=== PATIENT | female | born 1945 | race Caucasian/White ===

== ENCOUNTER 2017-05-10 10:22 | Inpatient (IN) | payer MEDICARE, OTHER, MEDICAID ==
[2017-05-10] MEDS ORDERED: Dimethicone 20%/Zinc Oxide 25% 56 GM Spray Bottle TOP PRN (11:09)
--- NOTE | 2017-05-10 11:18 | EDM.PDOC ---
ED HPI GENERAL MEDICAL PROBLEM - General Chief Complaint: General Stated Complaint: WEAK Time Seen by Provider: 05/10/17 11:15 Source of Information: Reports: Patient, EMS History Limitations: Reports: No Limitations - History of Present Illness INITIAL COMMENTS - FREE TEXT/NARRATIVE: 72-year-old female with progressive worsening weakness over the past several months to the point where she is unable to take care of herself at home. For the last several days she's been sitting in a chair urinating on herself as well as intermittent loose stools. She has developed horrible groin rashes. She was brought in today by home health for placement in a long term. She also has increased shortness of breath with activity. Denies any chest pain, abdominal pain, nausea or vomiting. Onset: Unknown/Unsure Severity: Moderate Associated Symptoms: Reports: Cough, Shortness of Breath, Weakness. Denies: Chest Pain, Fever/Chills, Malaise, Nausea/Vomiting Right Knee Pain Score (Numeric/FACES): 2 - Related Data Allergies Allergy/AdvReac Type Severity Reaction Status Date / Time No Known Allergies Allergy Verified 12/13/15 10:11 Home Meds: Home Meds Aspirin [Adult Low Dose Aspirin EC] 81 mg PO DAILY 11/29/15 [History] Ergocalciferol (Vitamin D2) [Vitamin D] 400 units PO DAILY 11/29/15 [History] Levothyroxine 25 mcg PO DAILY 11/29/15 [History] Multivitamin [Multiple Vitamins] 1 tab PO DAILY 11/29/15 [History] Warfarin [Coumadin] 2.5 mg PO DAILY@1300 #30 tablet 12/18/15 [Rx] Furosemide [Furosemide] 05/10/17 [History] Furosemide [Furosemide] 40 mg PO DAILY 05/10/17 [History] Past Medical History Cardiovascular History: Reports: Hypertension Gastrointestinal History: Reports: Other (See Below) Other Gastrointestinal History: diarrhea past 3 days Genitourinary History: Reports: Urinary Incontinence Musculoskeletal History: Reports: Arthritis Endocrine/Metabolic History: Reports: Obesity/BMI 30+ Dermatologic History: Reports: Other (See Below) Other Dermatologic History: rash belle area rectalarea - Infectious Disease History Infectious Disease History: Reports: Chicken Pox, Measles - Past Surgical History Cardiovascular Surgical History: Reports: None Other Cardiovascular Surgeries/Procedures: shona stasis ulcer Endocrine Surgical History: Reports: None Musculoskeletal Surgical History: Reports: None Social & Family History - Family History Family Medical History: Noncontributory - Tobacco Use Smoking Status *Q: Never Smoker Second Hand Smoke Exposure: No - Caffeine Use Caffeine Use: Reports: None - Recreational Drug Use Recreational Drug Use: No ED ROS GENERAL - Review of Systems Review Of Systems: See Below Constitutional: Reports: Malaise, Weakness. Denies: Fever, Chills HEENT: Reports: No Symptoms Respiratory: Reports: Shortness of Breath, Cough Cardiovascular: Denies: Chest Pain Endocrine: Reports: Fatigue GI/Abdominal: Reports: Diarrhea : Reports: Incontinence Skin: Reports: Pallor Neurological: Denies: Dizziness, Headache Psychiatric: Reports: No Symptoms ED EXAM, GENERAL - Physical Exam Exam: See Below Exam Limited By: No Limitations General Appearance: Alert, No Apparent Distress Eye Exam: Bilateral Eye: EOMI, Other (Pale conjunctiva) Respiratory/Chest: No Respiratory Distress, Lungs Clear Cardiovascular: Regular Rate, Rhythm GI/Abdominal: Soft, Non-Tender Extremities: Pedal Edema, Redness Neurological: Alert, Oriented Skin Exam: Warm, Dry, Other (Patient has inflamed erythematous rashes on both lower extremities, also diffuse rash in the groin and buttock) Course - Vital Signs Last Recorded V/S: Last Vital Signs Temp 98.6 F 05/11/17 07:00 Pulse 84 05/11/17 07:00 Resp 18 05/11/17 07:00 BP 135/53 L 05/11/17 07:00 Pulse Ox 91 L 05/11/17 07:00 - Orders/Labs/Meds Orders: Medication Orders Acetaminophen (Tylenol) 650 mg PO Q4H PRN PRN Reason: Pain (Mild 1-3)/fever Aspirin (Halfprin) 81 mg PO DAILY [facility] Last Admin: 05/10/17 15:26 Dose: 81 mg Docusate Sodium (Colace) 100 mg PO BID PRN PRN Reason: Constipation Furosemide (Lasix) 40 mg PO DAILY [facility] Ceftriaxone Sodium 1 gm/ (Sodium Chloride) 50 mls @ 100 mls/hr IV Q24H [facility] Last Admin: 05/10/17 15:26 Dose: 100 mls/hr Sodium Chloride (Normal Saline) 1,000 mls @ 75 mls/hr IV ASDIRECTED [facility] Last Admin: 05/11/17 05:33 Dose: 75 mls/hr Infusion: 05/11/17 05:33 Dose: 75 mls/hr Admin: 05/10/17 18:02 Dose: 75 mls/hr Ferric Sodium Gluconate Complex 250 mg/ Sodium Chloride 120 mls @ 50 mls/hr IV ONETIME ONE Stop: 05/11/17 12:23 Levothyroxine Sodium (Levothyroxine) 25 mcg PO DAILY@0730 [facility] Magnesium Hydroxide (Milk Of Magnesia) 30 ml PO Q12H PRN PRN Reason: Constipation Nystatin (Nystop) 0 gm TOP QID [facility] Last Admin: 05/11/17 05:43 Dose: 1 applic Admin: 05/10/17 21:29 Dose: 1 applic Admin: 05/10/17 16:28 Dose: 1 applic Ondansetron HCl (Zofran) 4 mg IV Q4H PRN PRN Reason: Nausea/Vomiting Oxycodone HCl (Oxycodone) 5 mg PO Q4H PRN PRN Reason: Pain (moderate 4-6) Polyethylene Glycol (Miralax) 17 gm PO DAILY PRN PRN Reason: Constipation Sodium Chloride (Saline Flush) 10 ml FLUSH ASDIRECTED PRN PRN Reason: Keep Vein Open Warfarin Sodium (Coumadin) 2.5 mg PO DAILY@1300 [facility] Labs: Laboratory Tests 05/10/17 05/10/17 05/10/17 Range/Units 11:45 11:45 11:45 WBC 12.9 H (4.5-11.0) K/uL RBC 3.65 (3.30-5.50) M/uL Hgb 7.7 L (12.0-15.0) g/dL Hct 28.0 L (36.0-48.0) % MCV 77 L (80-98) fL MCH 21 L (27-31) pg MCHC 28 L (32-36) % Plt Count 347 (150-400) K/uL Neut % (Auto) 86 H (36-66) % Lymph % (Auto) 5 L (24-44) % [place] % (Auto) 8 H (2-6) % Eos % (Auto) 1 L (2-4) % Baso % (Auto) 0 (0-1) % PT 27.5 H (9.5-12.0) sec INR 2.47 H (0.80-1.20) Sodium 138 L (140-148) mmol/L Potassium 4.0 (3.6-5.2) mmol/L Chloride 100 (100-108) mmol/L Carbon Dioxide 32 (21-32) mmol/L Anion Gap 10.0 (5.0-14.0) mmol/L BUN 28 H (7-18) mg/dL Creatinine 1.7 H (0.6-1.0) mg/dL Est Cr Clr Drug Dosing 25.11 mL/min Estimated GFR (MDRD) 30 L (>60) Glucose 128 H (74-106) mg/dL Calcium 8.3 L (8.5-10.1) mg/dL Iron (50-170) ug/dL TIBC (250-450) ug/dl % Saturation (20-55) % Ferritin (8-388) ng/ml Total Bilirubin 0.7 D (0.2-1.0) mg/dL AST 16 (15-37) U/L ALT 18 (12-78) U/L Alkaline Phosphatase 69 (46-116) U/L Total Protein 6.1 L (6.4-8.2) g/dL Albumin 2.4 L (3.4-5.0) g/dL Globulin 3.7 H (2.3-3.5) g/dL Albumin/Globulin Ratio 0.7 L (1.2-2.2) Urine Color Urine Appearance Urine pH (4.5-8.0) Ur Specific [place] (1.008-1.030) Urine Protein (NEGATIVE) mg/dL Urine Glucose (UA) (NEGATIVE) mg/dL Urine Ketones (NEGATIVE) mg/dL Urine Occult Blood (NEGATIVE) Urine Nitrite (NEGATIVE) Urine Bilirubin (NEGATIVE) Urine Urobilinogen (NORMAL) mg/dL Ur Leukocyte Esterase (NEGATIVE) Urine RBC (0-5) Urine WBC (0-5) Ur Epithelial Cells Amorphous Sediment Urine Bacteria Urine Mucus 05/10/17 05/10/17 05/10/17 Range/Units 12:09 13:30 13:30 WBC (4.5-11.0) K/uL RBC (3.30-5.50) M/uL Hgb (12.0-15.0) g/dL Hct (36.0-48.0) % MCV (80-98) fL MCH (27-31) pg MCHC (32-36) % Plt Count (150-400) K/uL Neut % (Auto) (36-66) % Lymph % (Auto) (24-44) % [place] % (Auto) (2-6) % Eos % (Auto) (2-4) % Baso % (Auto) (0-1) % PT (9.5-12.0) sec INR (0.80-1.20) Sodium (140-148) mmol/L Potassium (3.6-5.2) mmol/L Chloride (100-108) mmol/L Carbon Dioxide (21-32) mmol/L Anion Gap (5.0-14.0) mmol/L BUN (7-18) mg/dL Creatinine (0.6-1.0) mg/dL Est Cr Clr Drug Dosing mL/min Estimated GFR (MDRD) (>60) Glucose (74-106) mg/dL Calcium (8.5-10.1) mg/dL Iron 13 L (50-170) ug/dL TIBC 307 (250-450) ug/dl % Saturation 4 L (20-55) % Ferritin 27 (8-388) ng/ml Total Bilirubin (0.2-1.0) mg/dL AST (15-37) U/L ALT (12-78) U/L Alkaline Phosphatase (46-116) U/L Total Protein (6.4-8.2) g/dL Albumin (3.4-5.0) g/dL Globulin (2.3-3.5) g/dL Albumin/Globulin Ratio (1.2-2.2) Urine Color Yellow Urine Appearance Cloudy Urine pH 5.0 (4.5-8.0) Ur Specific [place] 1.015 (1.008-1.030) Urine Protein Negative (NEGATIVE) mg/dL Urine Glucose (UA) Normal (NEGATIVE) mg/dL Urine Ketones Negative (NEGATIVE) mg/dL Urine Occult Blood Moderate (NEGATIVE) Urine Nitrite Negative (NEGATIVE) Urine Bilirubin Negative (NEGATIVE) Urine Urobilinogen Normal (NORMAL) mg/dL Ur Leukocyte Esterase Moderate (NEGATIVE) Urine RBC 5-10 H (0-5) Urine WBC 10-20 H (0-5) Ur Epithelial Cells Rare Amorphous Sediment Not seen Urine Bacteria Moderate Urine Mucus Not seen Meds: Medications Generic Name Dose Route Start Last Admin Trade Name Huma PRN Reason Stop Dose Admin Acetaminophen 650 mg 05/10/17 14:46 Tylenol PO Q4H PRN Pain (Mild 1-3)/fever Aspirin 81 mg 05/10/17 14:46 05/10/17 15:26 Halfprin PO 81 mg DAILY YURIDIA Administration Docusate Sodium 100 mg 05/10/17 14:46 Colace PO BID PRN Constipation Furosemide 40 mg 05/11/17 09:00 Lasix PO DAILY [facility] Ceftriaxone Sodium 1 gm/ 50 mls @ 100 mls/hr 05/10/17 15:30 05/10/17 15:26 Sodium Chloride IV 100 mls/hr Q24H YURIDIA Administration Sodium Chloride 1,000 mls @ 75 mls/hr 05/10/17 14:46 05/11/17 05:33 Normal Saline IV 75 mls/hr ASDIRECTED YURIDIA Administration Ferric Sodium Gluconate 120 mls @ 50 mls/hr 05/11/17 10:00 Complex 250 mg/ Sodium IV 05/11/17 12:23 Chloride ONETIME ONE Levothyroxine Sodium 25 mcg 05/11/17 07:30 Levothyroxine PO DAILY@0730 [facility] Magnesium Hydroxide 30 ml 05/10/17 14:46 Milk Of Magnesia PO Q12H PRN Constipation Nystatin 0 gm 05/10/17 16:00 05/11/17 05:43 Nystop TOP 1 applic QID YURIDIA Administration Ondansetron HCl 4 mg 05/10/17 14:46 Zofran IV Q4H PRN Nausea/Vomiting Oxycodone HCl 5 mg 05/10/17 14:46 Oxycodone PO Q4H PRN Pain (moderate 4-6) Polyethylene Glycol 17 gm 05/10/17 14:46 Miralax PO DAILY PRN Constipation Sodium Chloride 10 ml 05/10/17 14:46 Saline Flush FLUSH ASDIRECTED PRN Keep Vein Open Warfarin Sodium 2.5 mg 05/11/17 13:00 Coumadin PO DAILY@1300 [facility] Discontinued Medications Generic Name Dose Route Start Last Admin Trade Name Huma PRN Reason Stop Dose Admin Dimethicone/Zinc Oxide 1 gm 05/10/17 11:09 05/10/17 11:11 Rash Relief-Zinc Oxide [place] TOP 9 spray ASDIRECTED PRN Administration Rash Ferric Sodium Gluconate 120 mls @ 50 mls/hr 05/10/17 16:00 05/10/17 16:24 Complex 250 mg/ Sodium IV 05/10/17 18:23 50 mls/hr Chloride ONETIME ONE Administration - Re-Assessments/Exams Free Text/Narrative Re-Assessment/Exam: 05/10/17 12:48 CBC CMP were obtained, rash relief ointment was placed on the buttock area. Hemoglobin returned 7.7. I asked Dr. Castle to see the patient to assess whether she was physically capable of being discharged to a long term or would benefit from a few days of inpatient treatment. Departure - Departure Time of Disposition: 14:19 Disposition: Admitted As Inpatient 67 Condition: Poor Clinical Impression: Renal insufficiency, Groin rash Anemia Qualifiers: Anemia type: iron deficiency Iron deficiency anemia type: unspecified iron deficiency Qualified Code(s): D50.9 - Iron deficiency anemia, unspecified - Discharge Information
--- NOTE | 2017-05-10 12:19 | CR ---
Chest 1V Frontal FINDINGS: The heart and vascular structures are normal in appearance. No infiltrates or effusions are demonstrated. IMPRESSION: Negative exam.
--- NOTE | 2017-05-10 14:37 | PCM.HP ---
H&P History of Present Illness - General Date of Service: 05/10/17 Admit Problem/Dx: Admission Diagnosis/Problem Admission Diagnosis/Problem Weakness Source of Information: Patient, Old Records, Provider, RN Notes Reviewed History Limitations: Reports: No Limitations - History of Present Illness Initial Comments - Free Text/Narative: Ms. Noel is a 72-year-old woman who has developed progressive weakness with underlying urinary tract infection and chronic anemia. She is admitted to observation status for transfusion and initial management of her UTI. Weakness has progressed the point where she now requires custodial placement. She is become progressively weak and has been unable to get out of her chair over the past few days. She does have a long-standing history of anemia and she is on oral anticoagulation with warfarin because of a history of deep vein thrombosis. She has had chronic venous stasis problems in both lower extremities. Over the past 3 days is also experience some diarrhea associated with her progressive weakness. Iron levels are found to be low, she denies any evidence of overt bleeding, hemoglobin is mildly decreased from chronic levels. - Related Data Allergies/Adverse Reactions: Allergies Allergy/AdvReac Type Severity Reaction Status Date / Time No Known Allergies Allergy Verified 12/13/15 10:11 Home Medications: Home Meds Aspirin [Adult Low Dose Aspirin EC] 81 mg PO DAILY 11/29/15 [History] Ergocalciferol (Vitamin D2) [Vitamin D] 400 units PO DAILY 11/29/15 [History] Levothyroxine 25 mcg PO DAILY 11/29/15 [History] Multivitamin [Multiple Vitamins] 1 tab PO DAILY 11/29/15 [History] Warfarin [Coumadin] 2.5 mg PO DAILY@1300 #30 tablet 12/18/15 [Rx] Furosemide [Furosemide] 05/10/17 [History] Furosemide [Furosemide] 40 mg PO DAILY 05/10/17 [History] Past Medical History Cardiovascular History: Reports: Hypertension Gastrointestinal History: Reports: Other (See Below) Other Gastrointestinal History: diarrhea past 3 days Genitourinary History: Reports: Urinary Incontinence Musculoskeletal History: Reports: Arthritis Endocrine/Metabolic History: Reports: Obesity/BMI 30+ Dermatologic History: Reports: Other (See Below) Other Dermatologic History: rash belle area rectalarea - Infectious Disease History Infectious Disease History: Reports: Chicken Pox, Measles - Past Surgical History Cardiovascular Surgical History: Reports: None Other Cardiovascular Surgeries/Procedures: shona stasis ulcer Endocrine Surgical History: Reports: None Musculoskeletal Surgical History: Reports: None Social & Family History - Family History Family Medical History: Noncontributory - Tobacco Use Smoking Status *Q: Never Smoker Second Hand Smoke Exposure: No - Caffeine Use Caffeine Use: Reports: None - Recreational Drug Use Recreational Drug Use: No H&P Review of Systems - Review of Systems: Review Of Systems: See Below General: Reports: Weakness. Denies: Fever, Chills, Decreased Appetite HEENT: Reports: No Symptoms Pulmonary: Reports: No Symptoms Cardiovascular: Reports: No Symptoms Gastrointestinal: Reports: No Symptoms Genitourinary: Reports: No Symptoms Musculoskeletal: Reports: No Symptoms Skin: Reports: No Symptoms Psychiatric: Reports: No Symptoms Neurological: Reports: No Symptoms Hematologic/Lymphatic: Reports: No Symptoms Immunologic: Reports: No Symptoms Exam - Exam Exam: See Below - Vital Signs Vital Signs: Last Vital Signs Temp 97.2 F 05/10/17 10:48 Pulse 84 05/10/17 10:48 Resp 8 L 05/10/17 10:48 BP 132/50 L 05/10/17 10:48 Pulse Ox Weight: 242 lb - Exam Quality Assessment: Urinary Catheter, DVT Prophylaxis General: Alert, Oriented, Cooperative HEENT: Conjunctiva Clear, Hearing Intact, Mucosa Moist & [place], Normal Nasal Septum, Posterior Pharynx Clear, Pupils Equal Neck: Supple, Trachea Midline, +2 Carotid Pulse wo Bruit Lungs: Clear to Auscultation, Normal Respiratory Effort Cardiovascular: Regular Rate, Regular Rhythm, Normal S1, Normal S2 GI/Abdominal Exam: Soft, Non-Tender, No Organomegaly, No Distention Back Exam: Normal Inspection, Full Range of Motion Extremities: Non-Tender, Pedal Edema, Other (Changes of chronic venous stasis both lower extremities) Skin: Warm, Other (Venous stasis both lower extremities) Neurological: Cranial Nerves Intact, Strength Equal Bilateral, Normal Speech, Normal Tone, Sensation Intact. No: Focal Deficit Neuro Extensive - Mental Status: Alert, Oriented x3, Normal Mood/Affect, Normal Cognition, Memory Intact - Patient Data Lab Results Last 24 hrs: Laboratory Results - last 24 hr 05/10/17 05/10/17 05/10/17 Range/Units 11:45 11:45 12:09 WBC 12.9 H (4.5-11.0) K/uL RBC 3.65 (3.30-5.50) M/uL Hgb 7.7 L (12.0-15.0) g/dL Hct 28.0 L (36.0-48.0) % MCV 77 L (80-98) fL MCH 21 L (27-31) pg MCHC 28 L (32-36) % Plt Count 347 (150-400) K/uL Neut % (Auto) 86 H (36-66) % Lymph % (Auto) 5 L (24-44) % [place] % (Auto) 8 H (2-6) % Eos % (Auto) 1 L (2-4) % Baso % (Auto) 0 (0-1) % Sodium 138 L (140-148) mmol/L Potassium 4.0 (3.6-5.2) mmol/L Chloride 100 (100-108) mmol/L Carbon Dioxide 32 (21-32) mmol/L Anion Gap 10.0 (5.0-14.0) mmol/L BUN 28 H (7-18) mg/dL Creatinine 1.7 H (0.6-1.0) mg/dL Est Cr Clr Drug Dosing 25.11 mL/min Estimated GFR (MDRD) 30 L (>60) Glucose 128 H (74-106) mg/dL Calcium 8.3 L (8.5-10.1) mg/dL Iron (50-170) ug/dL TIBC (250-450) ug/dl % Saturation (20-55) % Ferritin (8-388) ng/ml Total Bilirubin 0.7 D (0.2-1.0) mg/dL AST 16 (15-37) U/L ALT 18 (12-78) U/L Alkaline Phosphatase 69 (46-116) U/L Total Protein 6.1 L (6.4-8.2) g/dL Albumin 2.4 L (3.4-5.0) g/dL Globulin 3.7 H (2.3-3.5) g/dL Albumin/Globulin Ratio 0.7 L (1.2-2.2) Urine Color Yellow Urine Appearance Cloudy Urine pH 5.0 (4.5-8.0) Ur Specific [place] 1.015 (1.008-1.030) Urine Protein Negative (NEGATIVE) mg/dL Urine Glucose (UA) Normal (NEGATIVE) mg/dL Urine Ketones Negative (NEGATIVE) mg/dL Urine Occult Blood Moderate (NEGATIVE) Urine Nitrite Negative (NEGATIVE) Urine Bilirubin Negative (NEGATIVE) Urine Urobilinogen Normal (NORMAL) mg/dL Ur Leukocyte Esterase Moderate (NEGATIVE) Urine RBC 5-10 H (0-5) Urine WBC 10-20 H (0-5) Ur Epithelial Cells Rare Amorphous Sediment Not seen Urine Bacteria Moderate Urine Mucus Not seen 05/10/17 05/10/17 Range/Units 13:30 13:30 WBC (4.5-11.0) K/uL RBC (3.30-5.50) M/uL Hgb (12.0-15.0) g/dL Hct (36.0-48.0) % MCV (80-98) fL MCH (27-31) pg MCHC (32-36) % Plt Count (150-400) K/uL Neut % (Auto) (36-66) % Lymph % (Auto) (24-44) % [place] % (Auto) (2-6) % Eos % (Auto) (2-4) % Baso % (Auto) (0-1) % Sodium (140-148) mmol/L Potassium (3.6-5.2) mmol/L Chloride (100-108) mmol/L Carbon Dioxide (21-32) mmol/L Anion Gap (5.0-14.0) mmol/L BUN (7-18) mg/dL Creatinine (0.6-1.0) mg/dL Est Cr Clr Drug Dosing mL/min Estimated GFR (MDRD) (>60) Glucose (74-106) mg/dL Calcium (8.5-10.1) mg/dL Iron 13 L (50-170) ug/dL TIBC 307 (250-450) ug/dl % Saturation 4 L (20-55) % Ferritin 27 (8-388) ng/ml Total Bilirubin (0.2-1.0) mg/dL AST (15-37) U/L ALT (12-78) U/L Alkaline Phosphatase (46-116) U/L Total Protein (6.4-8.2) g/dL Albumin (3.4-5.0) g/dL Globulin (2.3-3.5) g/dL Albumin/Globulin Ratio (1.2-2.2) Urine Color Urine Appearance Urine pH (4.5-8.0) Ur Specific [place] (1.008-1.030) Urine Protein (NEGATIVE) mg/dL Urine Glucose (UA) (NEGATIVE) mg/dL Urine Ketones (NEGATIVE) mg/dL Urine Occult Blood (NEGATIVE) Urine Nitrite (NEGATIVE) Urine Bilirubin (NEGATIVE) Urine Urobilinogen (NORMAL) mg/dL Ur Leukocyte Esterase (NEGATIVE) Urine RBC (0-5) Urine WBC (0-5) Ur Epithelial Cells Amorphous Sediment Urine Bacteria Urine Mucus Result Diagrams: 05/10/17 11:45 05/10/17 11:45 *Q Meaningful Use (ADM) - VTE *Q VTE Criteria *Q: VTE Pharmacological Contraindications *Q: High INR Value - VTE Risk Assess *Q Each Risk Factor Represents 1 Point: Varicose Veins, Swollen Legs, Current, Obesity ( BMI > 25 kg/m2) Total Score 1 Point Risk Factors: 3 Each Risk Factor Represents 2 Points: Age 60 - 74 Years Total Score 2 Point Risk Factors: 2 Each Risk Factor Represents 3 Points: History of DVT/PE Total Score 3 Point Risk Factors: 3 Each Risk Factor Represents 5 Points: None Total Score 5 Point Risk Factors: 0 Venous Thromboembolism Risk Factor Score *Q: 8 - Stroke *Q Stroke Criteria *Q: - AMI *Q AMI Criteria *Q: Problem List Initiated/Reviewed/Updated: Yes Orders Last 24hrs: Active Orders 24 hr Category Date Time Status Patient Status Manage Transfer [TRANSFER] Routine ADT 05/10/17 14:02 Active Dimethicone/Zinc Oxide [Rash Relief-Zinc Oxide [place]] Med 05/10/17 11:09 Active 1 gm TOP ASDIRECTED PRN Resuscitation Status Routine Resus Stat 05/10/17 14:04 Ordered Medication Orders Dimethicone/Zinc Oxide (Rash Relief-Zinc Oxide [place]) 1 gm TOP ASDIRECTED PRN PRN Reason: Rash Last Admin: 05/10/17 11:11 Dose: 9 spray Assessment/Plan Comment:: ASSESSMENT AND PLAN CHRONIC ANEMIA-hemoglobin of 7.7, symptomatic with weakness and shortness of breath. Current hemoglobin is only mildly below chronic level, iron levels are found to be low as well. -Transfuse one unit of red blood cells -Recheck hemoglobin in a.m. -Ferrlecit 250 mg IV today and again in a.m. -Consider outpatient evaluation with endoscopy, anemia is chronic and does not require acute evaluation URINARY TRACT INFECTION -IV fluids for hydration -Urine culture pending -Rocephin 1 g IV every 24 hours pending culture results GENERALIZED WEAKNESS -Plan for custodial placement CHRONIC ANTICOAGULATION WITH WARFARIN-history of deep vein thrombosis -Continue usual outpatient dose of warfarin -INR now and in a.m. MAINTENANCE ISSUES -DVT prophylaxis; current therapy with warfarin should provide adequate DVT prophylaxis -GI prophylaxis; not indicated -[place]oyd catheter; placed in ED, will be removed on admission -Nutrition; 2 g sodium -Nicotine dependence; not required CODE STATUS-FULL CODE ADMISSION STATUS-this patient will be admitted to observation status, expect no more than a one night hospital stay for evaluation and management of problems as outlined above. DISPOSITION-anticipate discharge to home after the hospital stay. PRIMARY CARE PROVIDER-
[2017-05-10] MEDS ORDERED: Polyethylene Glycol 3350 Powder 17 GM Packet PO PRN (14:46)
[2017-05-10] MEDS ORDERED: Magnesium Hydroxide 400 MG/5 ML Susp 30 ML Cup PO PRN (14:46)
[2017-05-10] MEDS ORDERED: oxyCODONE 5 MG Tab PO PRN (14:46)
[2017-05-10] MEDS ORDERED: Ondansetron 4 MG/2 ML SDV IV PRN (14:46)
[2017-05-10] MEDS ORDERED: Acetaminophen 325 MG Tab PO PRN (14:46)
[2017-05-10] MEDS ORDERED: Sodium Chloride 0.9% 10 ML Syringe FLUSH PRN (14:46)
[2017-05-10] MEDS ORDERED: Docusate Sodium 100 MG Cap PO PRN (14:46)
[2017-05-10] MEDS: Aspirin 81 MG Tab.EC PO SCH (15:26)
[2017-05-10] MEDS: cefTRIAXone 1 GM in Sodium Chloride 0.9% 50 ML IV SCH (15:26)
[2017-05-10] MEDS ORDERED: Sodium Ferric Gluconate Cmplex 250 MG in Sodium Chloride 0.9% 100 ML IV ONE (16:00)
[2017-05-10] MEDS: Nystatin Topical Powder 15 GM Bottle TOP SCH ×2 (16:28→21:29)
[2017-05-10] MEDS: Sodium Chloride 0.9% 1,000 ML IV SCH (18:02)
[2017-05-11] MEDS: Sodium Chloride 0.9% 1,000 ML IV SCH (05:33)
[2017-05-11] MEDS: Nystatin Topical Powder 15 GM Bottle TOP SCH ×4 (05:43→21:11)
[2017-05-11] MEDS: Levothyroxine 25 MCG Tab PO SCH (07:58)
[2017-05-11] MEDS: Furosemide 40 MG Tab PO SCH (08:00)
[2017-05-11] MEDS: Aspirin 81 MG Tab.EC PO SCH (08:00)
[2017-05-11] MEDS ORDERED: Potassium Chloride 20 MEQ Tab.ER PO ONE (09:00)
[2017-05-11] MEDS ORDERED: Sodium Ferric Gluconate Cmplex 250 MG in Sodium Chloride 0.9% 100 ML IV ONE (10:00)
[2017-05-11] MEDS: Warfarin 2.5 MG Tab PO SCH (12:45)
--- NOTE | 2017-05-11 12:54 | PCM.PN ---
- General Info Date of Service: 05/11/17 Subjective Update: Ms. Noel has been stable since admission yesterday, blood not yet available because of antibody present. She is been afebrile and hemodynamically stable. Has experienced generalized weakness but otherwise denies significant symptoms. Functional Status: Reports: Tolerating Diet, Urinating - Patient Data Vitals - Most Recent: Last Vital Signs Temp 98.3 F 05/11/17 10:39 Pulse 80 05/11/17 10:39 Resp 18 05/11/17 10:39 BP 123/51 L 05/11/17 10:39 Pulse Ox 96 05/11/17 10:39 Weight - Most Recent: 257 lb I&O - Last 24 Hours: Intake & Output 05/10/17 05/11/17 05/11/17 22:59 06:59 14:59 Intake Total 595 866 640 Output Total 300 200 Balance 295 866 440 Lab Results Last 24 Hours: Laboratory Results - last 24 hr 05/10/17 05/11/17 05/11/17 Range/Units 15:00 04:55 04:55 WBC 10.8 (4.5-11.0) K/uL RBC 3.27 L (3.30-5.50) M/uL Hgb 7.1 L (12.0-15.0) g/dL Hct 25.5 L (36.0-48.0) % MCV 78 L (80-98) fL MCH 22 L (27-31) pg MCHC 28 L (32-36) % Plt Count 306 (150-400) K/uL Neut % (Auto) 73 H (36-66) % Lymph % (Auto) 12 L (24-44) % [place] % (Auto) 9 H (2-6) % Eos % (Auto) 6 H (2-4) % Baso % (Auto) 0 (0-1) % PT 32.1 H (9.5-12.0) sec INR 2.87 H (0.80-1.20) Sodium (140-148) mmol/L Potassium (3.6-5.2) mmol/L Chloride (100-108) mmol/L Carbon Dioxide (21-32) mmol/L Anion Gap (5.0-14.0) mmol/L BUN (7-18) mg/dL Creatinine (0.6-1.0) mg/dL Est Cr Clr Drug Dosing mL/min Estimated GFR (MDRD) (>60) Glucose (74-106) mg/dL Calcium (8.5-10.1) mg/dL Blood Type O POSITIVE Gel Antibody Screen Positive A* Crossmatch See Detail 05/11/17 Range/Units 04:55 WBC (4.5-11.0) K/uL RBC (3.30-5.50) M/uL Hgb (12.0-15.0) g/dL Hct (36.0-48.0) % MCV (80-98) fL MCH (27-31) pg MCHC (32-36) % Plt Count (150-400) K/uL Neut % (Auto) (36-66) % Lymph % (Auto) (24-44) % [place] % (Auto) (2-6) % Eos % (Auto) (2-4) % Baso % (Auto) (0-1) % PT (9.5-12.0) sec INR (0.80-1.20) Sodium 140 (140-148) mmol/L Potassium 3.5 L (3.6-5.2) mmol/L Chloride 104 (100-108) mmol/L Carbon Dioxide 29 (21-32) mmol/L Anion Gap 10.5 (5.0-14.0) mmol/L BUN 26 H (7-18) mg/dL Creatinine 1.5 H (0.6-1.0) mg/dL Est Cr Clr Drug Dosing 28.46 mL/min Estimated GFR (MDRD) 34 L (>60) Glucose 99 (74-106) mg/dL Calcium 7.9 L (8.5-10.1) mg/dL Blood Type Gel Antibody Screen Crossmatch Bahman Results Last 24 Hours: Microbiology 05/10/17 15:30 Urine Culture - Preliminary Urine, Clean Catch MIXED [place]ELSIE DAY 1 Med Orders - Current: Current Medications Acetaminophen (Tylenol) 650 mg PO Q4H PRN PRN Reason: Pain (Mild 1-3)/fever Aspirin (Halfprin) 81 mg PO DAILY [facility] Last Admin: 05/11/17 08:00 Dose: 81 mg Docusate Sodium (Colace) 100 mg PO BID PRN PRN Reason: Constipation Furosemide (Lasix) 40 mg PO DAILY [facility] Last Admin: 05/11/17 08:00 Dose: 40 mg Ceftriaxone Sodium 1 gm/ (Sodium Chloride) 50 mls @ 100 mls/hr IV Q24H [facility] Last Admin: 05/10/17 15:26 Dose: 100 mls/hr Levothyroxine Sodium (Levothyroxine) 25 mcg PO DAILY@0730 [facility] Last Admin: 05/11/17 07:58 Dose: 25 mcg Magnesium Hydroxide (Milk Of Magnesia) 30 ml PO Q12H PRN PRN Reason: Constipation Nystatin (Nystop) 0 gm TOP QID [facility] Last Admin: 05/11/17 09:00 Dose: 1 applic Ondansetron HCl (Zofran) 4 mg IV Q4H PRN PRN Reason: Nausea/Vomiting Oxycodone HCl (Oxycodone) 5 mg PO Q4H PRN PRN Reason: Pain (moderate 4-6) Polyethylene Glycol (Miralax) 17 gm PO DAILY PRN PRN Reason: Constipation Sodium Chloride (Saline Flush) 10 ml FLUSH ASDIRECTED PRN PRN Reason: Keep Vein Open Warfarin Sodium (Coumadin) 2.5 mg PO DAILY@1300 [facility] Last Admin: 05/11/17 12:45 Dose: 2.5 mg Discontinued Medications Dimethicone/Zinc Oxide (Rash Relief-Zinc Oxide [place]) 1 gm TOP ASDIRECTED PRN PRN Reason: Rash Last Admin: 05/10/17 11:11 Dose: 9 spray Sodium Chloride (Normal Saline) 1,000 mls @ 75 mls/hr IV ASDIRECTED [facility] Last Admin: 05/11/17 05:33 Dose: 75 mls/hr Ferric Sodium Gluconate Complex 250 mg/ Sodium Chloride 120 mls @ 50 mls/hr IV ONETIME ONE Stop: 05/10/17 18:23 Last Admin: 05/10/17 16:24 Dose: 50 mls/hr Ferric Sodium Gluconate Complex 250 mg/ Sodium Chloride 120 mls @ 50 mls/hr IV ONETIME ONE Stop: 05/11/17 12:23 Last Admin: 05/11/17 09:17 Dose: 50 mls/hr Potassium Chloride (Klor-Con M20) 40 meq PO ONETIME ONE Stop: 05/11/17 09:01 Last Admin: 05/11/17 09:17 Dose: 40 meq - Exam Quality Assessment: DVT Prophylaxis General: Alert, Cooperative, No Acute Distress Lungs: Clear to Auscultation, Normal Respiratory Effort Cardiovascular: Regular Rate, Regular Rhythm, No Murmurs GI/Abdominal Exam: Soft, Non-Tender, No Organomegaly, No Distention Extremities: Non-Tender, No Pedal Edema Skin: Warm, Dry, Intact - Problem List Review Problem List Initiated/Reviewed/Updated: Yes - My Orders Last 24 Hours: My Active Orders 05/10/17 14:04 Resuscitation Status Routine 05/10/17 14:46 Patient Status [ADT] Routine Ambulate [RC] QID Height and Weight [RC] DAILY Intake and Output [RC] QSHIFT Notify Provider Vital Signs [RC] ASDIRECTED Oxygen Therapy [RC] PRN Peripheral IV Care [RC] Q12H Up With Assistance [RC] ASDIRECTED Up to Chair [RC] QID VTE/DVT Education [RC] Per Unit Routine Vital Signs [RC] Q4H PT Evaluation and Treatment [CONS] Routine Acetaminophen [Tylenol] 650 mg PO Q4H PRN Docusate Sodium [Colace] 100 mg PO BID PRN Magnesium Hydroxide [Milk of Magnesia] 30 ml PO Q12H PRN Ondansetron [Zofran] 4 mg IV Q4H PRN Polyethylene Glycol 3350 [MiraLAX] 17 gm PO DAILY PRN Sodium Chloride 0.9% [Saline Flush] 10 ml FLUSH ASDIRECTED PRN oxyCODONE 5 mg PO Q4H PRN Peripheral IV Insertion Adult [OM.PC] Routine Transfuse Red Blood Cells [COMM] Urgent Transfuse Red Blood Cells [COMM] Urgent VTE Pharmacological Contraindications [AST] Per Unit Routine 05/10/17 15:00 ANTIBODY IDENTIFICATION [BBK] Stat RED BLOOD CELLS LP [BBK] Stat TYPE AND SCREEN [BBK] Stat 05/10/17 15:30 CULTURE URINE [RM] Stat cefTRIAXone [Rocephin] 1 gm Sodium Chloride 0.9% [Normal Saline] 50 ml IV Q24H 05/10/17 16:00 Nystatin [Nystop] See Dose Instructions TOP QID 05/10/17 Lunch 2 Gram Sodium Diet [DIET] 05/11/17 12:49 Convert IV to Saline Lock [OM.PC] Routine 05/12/17 05:00 BASIC METABOLIC PANEL,BMP [CHEM] Timed CBC WITH AUTO DIFF [HEME] Timed INR,PT,PROTHROMBIN TIME [COAG] Timed - Plan Plan:: ASSESSMENT AND PLAN CHRONIC ANEMIA-hemoglobin of 7.7, symptomatic with weakness and shortness of breath. Current hemoglobin is only mildly below chronic level, iron levels are found to be low as well. She has received both infusions of iron thus far without significant difficulty. Hemoglobin did drop with hydration but is likely dulutional in nature. No evidence of active ongoing bleeding. Because of antibody identified waiting for blood to transfuse from [place] -Transfuse one unit of red blood cells -Recheck hemoglobin in a.m. -Ferrlecit 250 mg IV today and again in a.m. -Consider outpatient evaluation with endoscopy, anemia is chronic and does not require acute evaluation URINARY TRACT INFECTION -Saline lock IV -Urine culture pending -Rocephin 1 g IV every 24 hours pending culture results GENERALIZED WEAKNESS -Plan for detention placement CHRONIC ANTICOAGULATION WITH WARFARIN-history of deep vein thrombosis, INR today is within therapeutic range -Continue usual outpatient dose of warfarin -INR in a.m. MAINTENANCE ISSUES -DVT prophylaxis; current therapy with warfarin should provide adequate DVT prophylaxis -GI prophylaxis; not indicated -Lloyd catheter; placed in ED, will be removed on admission -Nutrition; 2 g sodium -Nicotine dependence; not required CODE STATUS-FULL CODE ADMISSION STATUS-this patient will be admitted to observation status, expect no more than a one night hospital stay for evaluation and management of problems as outlined above. DISPOSITION-anticipate discharge to home after the hospital stay. PRIMARY CARE PROVIDER-
[2017-05-11] MEDS: cefTRIAXone 1 GM in Sodium Chloride 0.9% 50 ML IV SCH (17:09)
[2017-05-12] MEDS: Nystatin Topical Powder 15 GM Bottle TOP SCH ×4 (05:47→21:55)
[2017-05-12] MEDS: Levothyroxine 25 MCG Tab PO SCH (06:42)
[2017-05-12] MEDS: Furosemide 40 MG Tab PO SCH (08:45)
[2017-05-12] MEDS: Aspirin 81 MG Tab.EC PO SCH (08:45)
--- NOTE | 2017-05-12 12:39 | PCM.PN ---
- General Info Date of Service: 05/12/17 Subjective Update: Ms. Noel has remained stable over the past 24 hours, she did receive one unit of red blood cells and her hemoglobin this morning is up to 8.0. Denies significant symptoms of chest pain or shortness of breath but does report ongoing weakness. Vital signs have been stable and she has remained afebrile. Functional Status: Reports: Tolerating Diet, Urinating - Review of Systems General: Reports: Weakness. Denies: Fever, Chills Pulmonary: Reports: No Symptoms Cardiovascular: Reports: Edema. Denies: Chest Pain, Palpitations, Dyspnea on Exertion, Orthopnea, PND Gastrointestinal: Reports: No Symptoms - Patient Data Vitals - Most Recent: Last Vital Signs Temp 98.5 F 05/12/17 12:15 Pulse 92 05/12/17 12:15 Resp 18 05/12/17 12:15 BP 154/70 H 05/12/17 12:15 Pulse Ox 93 L 05/12/17 07:00 Weight - Most Recent: 254 lb 1.6 oz I&O - Last 24 Hours: Intake & Output 05/11/17 05/12/17 05/12/17 22:59 06:59 14:59 Intake Total 333 0 Output Total 400 300 200 Balance -67 -300 -200 Lab Results Last 24 Hours: Laboratory Results - last 24 hr 05/10/17 05/12/17 05/12/17 Range/Units 15:00 04:43 04:43 WBC 9.5 (4.5-11.0) K/uL RBC 3.59 (3.30-5.50) M/uL Hgb 8.0 L (12.0-15.0) g/dL Hct 28.5 L (36.0-48.0) % MCV 79 L (80-98) fL MCH 22 L (27-31) pg MCHC 28 L (32-36) % Plt Count 324 (150-400) K/uL Neut % (Auto) 69 H (36-66) % Lymph % (Auto) 12 L (24-44) % [place] % (Auto) 10 H (2-6) % Eos % (Auto) 8 H (2-4) % Baso % (Auto) 1 (0-1) % PT (9.5-12.0) sec INR (0.80-1.20) Sodium 142 (140-148) mmol/L Potassium 4.1 (3.6-5.2) mmol/L Chloride 107 (100-108) mmol/L Carbon Dioxide 29 (21-32) mmol/L Anion Gap 5.8 (5.0-14.0) mmol/L BUN 24 H (7-18) mg/dL Creatinine 1.5 H (0.6-1.0) mg/dL Est Cr Clr Drug Dosing 28.45 mL/min Estimated GFR (MDRD) 34 L (>60) Glucose 96 (74-106) mg/dL Calcium 8.1 L (8.5-10.1) mg/dL Blood Type O POSITIVE Gel Antibody Screen Negative Antibody Identification Cancelled Crossmatch See Detail 05/12/17 Range/Units 04:43 WBC (4.5-11.0) K/uL RBC (3.30-5.50) M/uL Hgb (12.0-15.0) g/dL Hct (36.0-48.0) % MCV (80-98) fL MCH (27-31) pg MCHC (32-36) % Plt Count (150-400) K/uL Neut % (Auto) (36-66) % Lymph % (Auto) (24-44) % [place] % (Auto) (2-6) % Eos % (Auto) (2-4) % Baso % (Auto) (0-1) % PT 27.3 H (9.5-12.0) sec INR 2.46 H (0.80-1.20) Sodium (140-148) mmol/L Potassium (3.6-5.2) mmol/L Chloride (100-108) mmol/L Carbon Dioxide (21-32) mmol/L Anion Gap (5.0-14.0) mmol/L BUN (7-18) mg/dL Creatinine (0.6-1.0) mg/dL Est Cr Clr Drug Dosing mL/min Estimated GFR (MDRD) (>60) Glucose (74-106) mg/dL Calcium (8.5-10.1) mg/dL Blood Type Gel Antibody Screen Antibody Identification Crossmatch Bahman Results Last 24 Hours: Microbiology 05/10/17 15:30 Urine Culture - Final Urine, Clean Catch MIXED SKINNY DAY 2 Med Orders - Current: Current Medications Acetaminophen (Tylenol) 650 mg PO Q4H PRN PRN Reason: Pain (Mild 1-3)/fever Aspirin (Halfprin) 81 mg PO DAILY [facility] Last Admin: 05/12/17 08:45 Dose: 81 mg Docusate Sodium (Colace) 100 mg PO BID PRN PRN Reason: Constipation Furosemide (Lasix) 40 mg PO DAILY [facility] Last Admin: 05/12/17 08:45 Dose: 40 mg Ceftriaxone Sodium 1 gm/ (Sodium Chloride) 50 mls @ 100 mls/hr IV Q24H [facility] Last Admin: 05/11/17 17:09 Dose: 100 mls/hr Levothyroxine Sodium (Levothyroxine) 25 mcg PO DAILY@0730 [facility] Last Admin: 05/12/17 06:42 Dose: 25 mcg Magnesium Hydroxide (Milk Of Magnesia) 30 ml PO Q12H PRN PRN Reason: Constipation Nystatin (Nystop) 0 gm TOP QID [facility] Last Admin: 05/12/17 10:05 Dose: 1 applic Ondansetron HCl (Zofran) 4 mg IV Q4H PRN PRN Reason: Nausea/Vomiting Oxycodone HCl (Oxycodone) 5 mg PO Q4H PRN PRN Reason: Pain (moderate 4-6) Polyethylene Glycol (Miralax) 17 gm PO DAILY PRN PRN Reason: Constipation Sodium Chloride (Saline Flush) 10 ml FLUSH ASDIRECTED PRN PRN Reason: Keep Vein Open Warfarin Sodium (Coumadin) 2.5 mg PO DAILY@1300 [facility] Last Admin: 05/11/17 12:45 Dose: 2.5 mg Discontinued Medications Dimethicone/Zinc Oxide (Rash Relief-Zinc Oxide [place]) 1 gm TOP ASDIRECTED PRN PRN Reason: Rash Last Admin: 05/10/17 11:11 Dose: 9 spray Sodium Chloride (Normal Saline) 1,000 mls @ 75 mls/hr IV ASDIRECTED [facility] Last Admin: 05/11/17 05:33 Dose: 75 mls/hr Ferric Sodium Gluconate Complex 250 mg/ Sodium Chloride 120 mls @ 50 mls/hr IV ONETIME ONE Stop: 05/10/17 18:23 Last Admin: 05/10/17 16:24 Dose: 50 mls/hr Ferric Sodium Gluconate Complex 250 mg/ Sodium Chloride 120 mls @ 50 mls/hr IV ONETIME ONE Stop: 05/11/17 12:23 Last Admin: 05/11/17 09:17 Dose: 50 mls/hr Potassium Chloride (Klor-Con M20) 40 meq PO ONETIME ONE Stop: 05/11/17 09:01 Last Admin: 05/11/17 09:17 Dose: 40 meq - Exam Quality Assessment: DVT Prophylaxis General: Alert, Oriented, Cooperative, No Acute Distress Lungs: Clear to Auscultation, Normal Respiratory Effort Cardiovascular: Regular Rate, No Murmurs, Irregular Rhythm GI/Abdominal Exam: Soft, Non-Tender, No Organomegaly, No Distention Extremities: Non-Tender, Pedal Edema Skin: Warm, Dry - Problem List Review Problem List Initiated/Reviewed/Updated: Yes - My Orders Last 24 Hours: My Active Orders 05/13/17 05:00 BASIC METABOLIC PANEL,BMP [CHEM] Timed CBC WITH AUTO DIFF [HEME] Timed INR,PT,PROTHROMBIN TIME [COAG] Timed 05/11/17 12:49 Convert IV to Saline Lock [OM.PC] Routine 05/12/17 07:40 Transfuse Red Blood Cells [COMM] Urgent - Plan Plan:: ASSESSMENT AND PLAN CHRONIC ANEMIA-after review by blood bank, no significant antibodies identified. She was transfused 1 unit of red blood cells yesterday and hemoglobin is come up to 8.0. Given symptoms of weakness we'll plan for transfusion of an additional unit of red blood cells today. She has received 2 doses of IV iron. -Transfuse one unit of red blood cells -Recheck hemoglobin in a.m. -Consider outpatient evaluation with endoscopy, anemia is chronic and does not require acute evaluation URINARY TRACT INFECTION-urine culture growing only mixed skinny -Discontinue use of IV antibiotics given culture results GENERALIZED WEAKNESS -Plan for intermediate placement CHRONIC ANTICOAGULATION WITH WARFARIN-history of deep vein thrombosis, INR today is within therapeutic range -Continue usual outpatient dose of warfarin -INR in a.m. MAINTENANCE ISSUES -DVT prophylaxis; current therapy with warfarin should provide adequate DVT prophylaxis -GI prophylaxis; not indicated -Lloyd catheter; placed in ED, will be removed on admission -Nutrition; 2 g sodium -Nicotine dependence; not required CODE STATUS-FULL CODE ADMISSION STATUS-this patient will be admitted to observation status, expect no more than a one night hospital stay for evaluation and management of problems as outlined above. DISPOSITION-anticipate discharge to home after the hospital stay. PRIMARY CARE PROVIDER-
[2017-05-12] MEDS: Warfarin 2.5 MG Tab PO SCH (14:49)
[2017-05-13] MEDS: Nystatin Topical Powder 15 GM Bottle TOP SCH ×4 (06:00→23:08)
[2017-05-13] MEDS: Levothyroxine 25 MCG Tab PO SCH (06:30)
[2017-05-13] MEDS: Aspirin 81 MG Tab.EC PO SCH (08:26)
[2017-05-13] MEDS: Furosemide 40 MG Tab PO SCH (08:26)
--- NOTE | 2017-05-13 12:19 | PCM.PN ---
- General Info Date of Service: 05/13/17 Functional Status: Reports: Pain Controlled - Review of Systems General: Reports: Weakness. Denies: Fever Gastrointestinal: Denies: Abdominal Pain Systems Review Comment:: No acute events overnight. No evidence for bleeding. Vital signs have been stable. Hemoglobin responded nicely to blood transfusion. Still very weak and requiring the assistance of at least one and sometimes 2 people to get out of bed and to the bathroom and back. - Patient Data Vitals - Most Recent: Last Vital Signs Temp 36.3 C 05/13/17 11:00 Pulse 80 05/13/17 11:00 Resp 18 05/13/17 11:00 BP 147/60 H 05/13/17 11:00 Pulse Ox 96 05/13/17 11:00 Weight - Most Recent: 116.029 kg I&O - Last 24 Hours: Intake & Output 05/12/17 05/13/17 05/13/17 22:59 06:59 14:59 Intake Total 360 Output Total 300 450 125 Balance -300 -450 235 Lab Results Last 24 Hours: Laboratory Results - last 24 hr 05/10/17 05/13/17 05/13/17 Range/Units 15:00 06:00 06:00 WBC 9.3 (4.5-11.0) K/uL RBC 4.09 (3.30-5.50) M/uL Hgb 9.4 L (12.0-15.0) g/dL Hct 33.0 L (36.0-48.0) % MCV 81 (80-98) fL MCH 23 L (27-31) pg MCHC 29 L (32-36) % Plt Count 328 (150-400) K/uL Neut % (Auto) 72 H (36-66) % Lymph % (Auto) 12 L (24-44) % [place] % (Auto) 8 H (2-6) % Eos % (Auto) 7 H (2-4) % Baso % (Auto) 1 (0-1) % PT 23.9 H (9.5-12.0) sec INR 2.16 H (0.80-1.20) Sodium (140-148) mmol/L Potassium (3.6-5.2) mmol/L Chloride (100-108) mmol/L Carbon Dioxide (21-32) mmol/L Anion Gap (5.0-14.0) mmol/L BUN (7-18) mg/dL Creatinine (0.6-1.0) mg/dL Est Cr Clr Drug Dosing mL/min Estimated GFR (MDRD) (>60) Glucose (74-106) mg/dL Calcium (8.5-10.1) mg/dL Crossmatch See Detail 05/13/17 Range/Units 06:00 WBC (4.5-11.0) K/uL RBC (3.30-5.50) M/uL Hgb (12.0-15.0) g/dL Hct (36.0-48.0) % MCV (80-98) fL MCH (27-31) pg MCHC (32-36) % Plt Count (150-400) K/uL Neut % (Auto) (36-66) % Lymph % (Auto) (24-44) % [place] % (Auto) (2-6) % Eos % (Auto) (2-4) % Baso % (Auto) (0-1) % PT (9.5-12.0) sec INR (0.80-1.20) Sodium 143 (140-148) mmol/L Potassium 4.0 (3.6-5.2) mmol/L Chloride 106 (100-108) mmol/L Carbon Dioxide 31 (21-32) mmol/L Anion Gap 5.7 (5.0-14.0) mmol/L BUN 25 H (7-18) mg/dL Creatinine 1.5 H (0.6-1.0) mg/dL Est Cr Clr Drug Dosing 28.45 mL/min Estimated GFR (MDRD) 34 L (>60) Glucose 94 (74-106) mg/dL Calcium 8.5 (8.5-10.1) mg/dL Crossmatch Med Orders - Current: Current Medications Acetaminophen (Tylenol) 650 mg PO Q4H PRN PRN Reason: Pain (Mild 1-3)/fever Aspirin (Halfprin) 81 mg PO DAILY [facility] Last Admin: 05/13/17 08:26 Dose: 81 mg Docusate Sodium (Colace) 100 mg PO BID PRN PRN Reason: Constipation Furosemide (Lasix) 40 mg PO DAILY [facility] Last Admin: 05/13/17 08:26 Dose: 40 mg Levothyroxine Sodium (Levothyroxine) 25 mcg PO DAILY@0730 [facility] Last Admin: 05/13/17 06:30 Dose: 25 mcg Magnesium Hydroxide (Milk Of Magnesia) 30 ml PO Q12H PRN PRN Reason: Constipation Nystatin (Nystop) 0 gm TOP QID [facility] Last Admin: 05/13/17 06:00 Dose: 1 applic Ondansetron HCl (Zofran) 4 mg IV Q4H PRN PRN Reason: Nausea/Vomiting Oxycodone HCl (Oxycodone) 5 mg PO Q4H PRN PRN Reason: Pain (moderate 4-6) Polyethylene Glycol (Miralax) 17 gm PO DAILY PRN PRN Reason: Constipation Sodium Chloride (Saline Flush) 10 ml FLUSH ASDIRECTED PRN PRN Reason: Keep Vein Open Warfarin Sodium (Coumadin) 2.5 mg PO DAILY@1300 [facility] Last Admin: 05/12/17 14:49 Dose: 2.5 mg Discontinued Medications Dimethicone/Zinc Oxide (Rash Relief-Zinc Oxide [place]) 1 gm TOP ASDIRECTED PRN PRN Reason: Rash Last Admin: 05/10/17 11:11 Dose: 9 spray Ceftriaxone Sodium 1 gm/ (Sodium Chloride) 50 mls @ 100 mls/hr IV Q24H [facility] Last Admin: 05/11/17 17:09 Dose: 100 mls/hr Sodium Chloride (Normal Saline) 1,000 mls @ 75 mls/hr IV ASDIRECTED [facility] Last Admin: 05/11/17 05:33 Dose: 75 mls/hr Ferric Sodium Gluconate Complex 250 mg/ Sodium Chloride 120 mls @ 50 mls/hr IV ONETIME ONE Stop: 05/10/17 18:23 Last Admin: 05/10/17 16:24 Dose: 50 mls/hr Ferric Sodium Gluconate Complex 250 mg/ Sodium Chloride 120 mls @ 50 mls/hr IV ONETIME ONE Stop: 05/11/17 12:23 Last Admin: 05/11/17 09:17 Dose: 50 mls/hr Potassium Chloride (Klor-Con M20) 40 meq PO ONETIME ONE Stop: 05/11/17 09:01 Last Admin: 05/11/17 09:17 Dose: 40 meq - Exam Quality Assessment: No: Supplemental Oxygen General: Alert, Oriented, Cooperative, No Acute Distress Neck: Supple Lungs: Normal Respiratory Effort GI/Abdominal Exam: No Distention Skin: Warm, Dry Psy/Mental Status: Alert, Normal Affect - Problem List Review Problem List Initiated/Reviewed/Updated: Yes - My Orders Last 24 Hours: My Active Orders 05/14/17 05:00 HGB [HEMOGLOBIN] [HEME] Timed INR,PT,PROTHROMBIN TIME [COAG] Timed - Plan Plan:: ASSESSMENT AND PLAN CHRONIC ANEMIA - She has received 2 doses of IV iron and 2 units of blood. Vital signs stable but she remains very weak. -Recheck hemoglobin in a.m. -Consider outpatient evaluation with endoscopy, anemia is chronic and does not require acute evaluation Possible URINARY TRACT INFECTION - urine culture growing only mixed skinny and antibiotics have been discontinued. GENERALIZED WEAKNESS - still requiring at least one or 2 folks to assist activities of daily living. -Plan for [facility] placement CHRONIC ANTICOAGULATION WITH WARFARIN - history of deep vein thrombosis, INR therapeutic. -Continue usual outpatient dose of warfarin -INR in a.m. MAINTENANCE ISSUES -DVT prophylaxis; current therapy with warfarin should provide adequate DVT prophylaxis -GI prophylaxis; not indicated -Nutrition; 2 g sodium -Nicotine dependence; not required DISPOSITION - anticipate discharge to the [facility] after the hospital stay. She is stable for discharge at this time but unfortunately no [facility] beds are available because of the 's holiday. I would anticipate discharge tomorrow. Obi Fonseca M.D.
[2017-05-13] MEDS: Warfarin 2.5 MG Tab PO SCH (13:04)
[2017-05-14] MEDS: Nystatin Topical Powder 15 GM Bottle TOP SCH ×2 (05:09→09:33)
[2017-05-14] MEDS: Levothyroxine 25 MCG Tab PO SCH (07:27)
[2017-05-14] MEDS: Aspirin 81 MG Tab.EC PO SCH (09:33)
[2017-05-14] MEDS: Furosemide 40 MG Tab PO SCH (09:33)
[2017-05-14 13:38] VITALS: BP 144/62
[2017-05-14] MEDS: Warfarin 2.5 MG Tab PO SCH (13:41)
--- NOTE | 2017-05-14 14:34 | PCM.PN ---
- General Info Date of Service: 05/14/17 Functional Status: Reports: Pain Controlled, Tolerating Diet - Review of Systems General: Denies: Fever - Patient Data Vitals - Most Recent: Last Vital Signs Temp 36.6 C 05/14/17 13:35 Pulse 80 05/14/17 13:35 Resp 20 05/14/17 13:35 BP 144/62 H 05/14/17 13:35 Pulse Ox 96 05/14/17 13:35 Weight - Most Recent: 114.396 kg I&O - Last 24 Hours: Intake & Output 05/13/17 05/14/17 05/14/17 22:59 06:59 14:59 Intake Total 100 400 360 Output Total 925 225 550 Balance -825 175 -190 Lab Results Last 24 Hours: Laboratory Results - last 24 hr 05/14/17 05/14/17 Range/Units 05:15 05:15 Hgb 9.9 L (12.0-15.0) g/dL PT 25.5 H (9.5-12.0) sec INR 2.30 H (0.80-1.20) Med Orders - Current: Current Medications Acetaminophen (Tylenol) 650 mg PO Q4H PRN PRN Reason: Pain (Mild 1-3)/fever Aspirin (Halfprin) 81 mg PO DAILY [facility] Last Admin: 05/14/17 09:33 Dose: 81 mg Docusate Sodium (Colace) 100 mg PO BID PRN PRN Reason: Constipation Furosemide (Lasix) 40 mg PO DAILY [facility] Last Admin: 05/14/17 09:33 Dose: 40 mg Levothyroxine Sodium (Levothyroxine) 25 mcg PO DAILY@0730 [facility] Last Admin: 05/14/17 07:27 Dose: 25 mcg Magnesium Hydroxide (Milk Of Magnesia) 30 ml PO Q12H PRN PRN Reason: Constipation Nystatin (Nystop) 0 gm TOP QID [facility] Last Admin: 05/14/17 09:33 Dose: 1 applic Ondansetron HCl (Zofran) 4 mg IV Q4H PRN PRN Reason: Nausea/Vomiting Oxycodone HCl (Oxycodone) 5 mg PO Q4H PRN PRN Reason: Pain (moderate 4-6) Polyethylene Glycol (Miralax) 17 gm PO DAILY PRN PRN Reason: Constipation Sodium Chloride (Saline Flush) 10 ml FLUSH ASDIRECTED PRN PRN Reason: Keep Vein Open Warfarin Sodium (Coumadin) 2.5 mg PO DAILY@1300 [facility] Last Admin: 05/14/17 13:41 Dose: 2.5 mg Discontinued Medications Dimethicone/Zinc Oxide (Rash Relief-Zinc Oxide [place]) 1 gm TOP ASDIRECTED PRN PRN Reason: Rash Last Admin: 05/10/17 11:11 Dose: 9 spray Ceftriaxone Sodium 1 gm/ (Sodium Chloride) 50 mls @ 100 mls/hr IV Q24H [facility] Last Admin: 05/11/17 17:09 Dose: 100 mls/hr Sodium Chloride (Normal Saline) 1,000 mls @ 75 mls/hr IV ASDIRECTED [facility] Last Admin: 05/11/17 05:33 Dose: 75 mls/hr Ferric Sodium Gluconate Complex 250 mg/ Sodium Chloride 120 mls @ 50 mls/hr IV ONETIME ONE Stop: 05/10/17 18:23 Last Admin: 05/10/17 16:24 Dose: 50 mls/hr Ferric Sodium Gluconate Complex 250 mg/ Sodium Chloride 120 mls @ 50 mls/hr IV ONETIME ONE Stop: 05/11/17 12:23 Last Admin: 05/11/17 09:17 Dose: 50 mls/hr Potassium Chloride (Klor-Con M20) 40 meq PO ONETIME ONE Stop: 05/11/17 09:01 Last Admin: 05/11/17 09:17 Dose: 40 meq - Exam Quality Assessment: No: Supplemental Oxygen General: Alert, Oriented, Cooperative, No Acute Distress Neck: Supple Lungs: Normal Respiratory Effort GI/Abdominal Exam: No Distention Psy/Mental Status: Alert, Normal Affect - Plan Plan:: ASSESSMENT AND PLAN CHRONIC ANEMIA - She has received 2 doses of IV iron and 2 units of blood. Vital signs stable but she remains very weak. -Recheck hemoglobin in a.m. -Consider outpatient evaluation with endoscopy, anemia is chronic and does not require acute evaluation Possible URINARY TRACT INFECTION - urine culture growing only mixed skinny and antibiotics have been discontinued. GENERALIZED WEAKNESS - still requiring at least one or 2 folks to assist activities of daily living. -Plan for group home placement CHRONIC ANTICOAGULATION WITH WARFARIN - history of deep vein thrombosis, INR therapeutic. -Continue usual outpatient dose of warfarin -INR in a.m. MAINTENANCE ISSUES -DVT prophylaxis; current therapy with warfarin should provide adequate DVT prophylaxis -GI prophylaxis; not indicated -Nutrition; 2 g sodium -Nicotine dependence; not required DISPOSITION - anticipate discharge to the group home after the hospital stay. She is stable for discharge at this time but unfortunately no group home beds are available because of the 's holiday. I would anticipate discharge tomorrow. Obi Fonseca M.D.
--- NOTE | 2017-05-14 15:42 | PCM.DCSUM1 ---
Discharge Summary - Hospital Course Brief History: 72 -year-old female with history of DVT on warfarin and chronic anemia who presented with generalized weakness. Workup in the emergency room revealed acute on chronic anemia as well as possible urinary tract infection and she was admitted for further management. - Discharge Data Discharge Date: 05/14/17 Discharge Disposition: DC/Tfer to [facility] 03 Condition: Good - Discharge Diagnosis/Problem(s) (1) Iron deficiency anemia SNOMED Code(s): 75042911 ICD Code: D50.9 - IRON DEFICIENCY ANEMIA, UNSPECIFIED Status: Acute Current Visit: Yes Qualifiers: Iron deficiency anemia type: unspecified iron deficiency Qualified Code(s) : D50.9 - Iron deficiency anemia, unspecified (2) Generalized weakness SNOMED Code(s): 51994506 ICD Code: R53.1 - WEAKNESS Status: Acute Current Visit: Yes (3) Benign essential hypertension SNOMED Code(s): 2511352 ICD Code: I10 - ESSENTIAL (PRIMARY) HYPERTENSION Status: Chronic Current Visit: No (4) CKD (chronic kidney disease) stage 3, GFR 30-59 ml/min SNOMED Code(s): 694428310 ICD Code: N18.3 - CHRONIC KIDNEY DISEASE, STAGE 3 (MODERATE) Status: Chronic Current Visit: No (5) DVT (deep venous thrombosis) SNOMED Code(s): 063726564 ICD Code: I82.409 - ACUTE EMBOLISM AND THOMBOS UNSP DEEP VN UNSP LOWER EXTREMITY Status: Chronic Current Visit: Yes Qualifiers: DVT location: lower extremity Affected thrombotic vein of extremity: unspecified vein of extremity Chronicity: chronic Laterality: unspecified laterality Qualified Code(s): I82.509 - Chronic embolism and thrombosis of unspecified deep veins of unspecified lower extremity - Patient Summary/Data Consults: Consultations 05/10/17 14:46 PT Evaluation and Treatment [CONS] Routine Please Evaluate and Treat. PT Reason for Consult: Strengthening This query below is only for informational purposes and is not editable. Hospital Course: Bebe presented to the emergency room with generalized weakness. Workup in the emergency room revealed acute on chronic anemia as well as a possible urinary tract infection. She was too weak for outpatient management so she was admitted to the hospital, initially for observation. Iron studies were suggestive of iron deficiency.She received 1 unit of blood via transfusion for the anemia and was empirically started on antibiotics for the possible urinary tract infection. Her hemoglobin did not respond as well as hoped to the initial blood transfusion and 2 doses of IV iron and she did require a second unit of packed red blood cells to be transfused. Her hemoglobin has been greater than 9 and almost up to 10 in stable since the second blood transfusion. There was no evidence for bleeding during the hospital stay. As far as the urinary tract infection was concerned the culture did not grow specific bacteria and only grew mixed skinny. After 2 days of no growth of a specific infectious pathogen the antibiotics were discontinued. She has not had any fevers during the hospital stay. her vital signs have been stable. She has been working with physical therapy but remains too weak for outpatient management at this time. Plan is for discharge to a local skilled nursing for additional rehabilitation before she returns home to her apartment. She would benefit from follow-up with her primary care to discuss the utility of additional workup for her anemia. We elected to hold off on this workup because of the mild acute on chronic nature. I believe she would benefit from rehabilitation prior to additional workup. She will remain on her warfarin with a history of DVT. she would benefit from physical and occupational therapy evaluations for strengthening prior to her return home. - Patient Instructions Diet: Regular Diet as Tolerated Activity: As Tolerated Showering/Bathing: May Shower Notify Provider of: Fever, Increased Pain, Nausea and/or Vomiting Other/Special Instructions: 1. You were in the hospital for management of acute on chronic anemia as well as possible urinary tract infection. Your hemoglobin level has improved after transfusion of 2 units of blood and 2 doses of IV iron. I would recommend that you take an iron supplement daily after hospital discharge and follow-up with your regular doctor to discuss the utility of workup for chronic blood loss including upper and lower endoscopy. Your urine culture did not show evidence for infection and antibiotics have been discontinued. 2. Please continue your other medications as previously prescribed. 3. Code Status - Full code. 4. Referral to physical and occupational therapy for strengthening in the setting of acute illness and generalized weakness. 5. Repeat INR level on May 16 or . 6. Seek medical attention if you develop fever greater than 101, have sudden onset of shortness of breath or chest tightness or if you have significant bleeding in your stool. - Discharge Plan Prescriptions/Med Rec: Acetaminophen [Tylenol] 650 mg PO Q4H PRN #100 tablet PRN Reason: Pain (Mild 1-3)/fever Ferrous Sulfate 325 mg PO DAILY #30 tablet Home Medications: Home Meds Aspirin [Adult Low Dose Aspirin EC] 81 mg PO DAILY 11/29/15 [History] Ergocalciferol (Vitamin D2) [Vitamin D] 400 units PO DAILY 11/29/15 [History] Levothyroxine 25 mcg PO DAILY 11/29/15 [History] Multivitamin [Multiple Vitamins] 1 tab PO DAILY 11/29/15 [History] Warfarin [Coumadin] 2.5 mg PO DAILY@1300 #30 tablet 12/18/15 [Rx] Furosemide 40 mg PO DAILY 05/10/17 [History] Acetaminophen [Tylenol] 650 mg PO Q4H PRN #100 tablet 05/14/17 [Rx] Ferrous Sulfate 325 mg PO DAILY #30 tablet 05/14/17 [Rx] Patient Handouts: Iron Deficiency Anemia, Adult Referrals: PCP,None [Primary Care Provider] - (f/u with your primary care after the skilled nursing rehabilitation to discuss potential work up for chronic blood loss) - Discharge Summary/Plan Comment DC Time >30 min.: Yes (40 - new skilled nursing discharge ) - Patient Data Vitals - Most Recent: Last Vital Signs Temp 36.6 C 05/14/17 13:35 Pulse 80 05/14/17 13:35 Resp 20 05/14/17 13:35 BP 144/62 H 05/14/17 13:35 Pulse Ox 96 05/14/17 13:35 Weight - Most Recent: 114.396 kg I&O - Last 24 hours: Intake & Output 05/14/17 05/14/17 05/14/17 06:59 14:59 22:59 Intake Total 400 360 Output Total 225 550 Balance 175 -190 Lab Results - Last 24 hrs: Laboratory Results - last 24 hr 05/14/17 05/14/17 Range/Units 05:15 05:15 Hgb 9.9 L (12.0-15.0) g/dL PT 25.5 H (9.5-12.0) sec INR 2.30 H (0.80-1.20) Med Orders - Current: Current Medications Acetaminophen (Tylenol) 650 mg PO Q4H PRN PRN Reason: Pain (Mild 1-3)/fever Aspirin (Halfprin) 81 mg PO DAILY [facility] Last Admin: 05/14/17 09:33 Dose: 81 mg Docusate Sodium (Colace) 100 mg PO BID PRN PRN Reason: Constipation Furosemide (Lasix) 40 mg PO DAILY [facility] Last Admin: 05/14/17 09:33 Dose: 40 mg Levothyroxine Sodium (Levothyroxine) 25 mcg PO DAILY@0730 [facility] Last Admin: 05/14/17 07:27 Dose: 25 mcg Magnesium Hydroxide (Milk Of Magnesia) 30 ml PO Q12H PRN PRN Reason: Constipation Nystatin (Nystop) 0 gm TOP QID [facility] Last Admin: 05/14/17 09:33 Dose: 1 applic Ondansetron HCl (Zofran) 4 mg IV Q4H PRN PRN Reason: Nausea/Vomiting Oxycodone HCl (Oxycodone) 5 mg PO Q4H PRN PRN Reason: Pain (moderate 4-6) Polyethylene Glycol (Miralax) 17 gm PO DAILY PRN PRN Reason: Constipation Sodium Chloride (Saline Flush) 10 ml FLUSH ASDIRECTED PRN PRN Reason: Keep Vein Open Warfarin Sodium (Coumadin) 2.5 mg PO DAILY@1300 [facility] Last Admin: 05/14/17 13:41 Dose: 2.5 mg Discontinued Medications Dimethicone/Zinc Oxide (Rash Relief-Zinc Oxide [place]) 1 gm TOP ASDIRECTED PRN PRN Reason: Rash Last Admin: 05/10/17 11:11 Dose: 9 spray Ceftriaxone Sodium 1 gm/ (Sodium Chloride) 50 mls @ 100 mls/hr IV Q24H [facility] Last Admin: 05/11/17 17:09 Dose: 100 mls/hr Sodium Chloride (Normal Saline) 1,000 mls @ 75 mls/hr IV ASDIRECTED [facility] Last Admin: 05/11/17 05:33 Dose: 75 mls/hr Ferric Sodium Gluconate Complex 250 mg/ Sodium Chloride 120 mls @ 50 mls/hr IV ONETIME ONE Stop: 05/10/17 18:23 Last Admin: 05/10/17 16:24 Dose: 50 mls/hr Ferric Sodium Gluconate Complex 250 mg/ Sodium Chloride 120 mls @ 50 mls/hr IV ONETIME ONE Stop: 05/11/17 12:23 Last Admin: 05/11/17 09:17 Dose: 50 mls/hr Potassium Chloride (Klor-Con M20) 40 meq PO ONETIME ONE Stop: 05/11/17 09:01 Last Admin: 05/11/17 09:17 Dose: 40 meq - Exam Quality Assessment: Denies: Supplemental Oxygen General: Reports: Alert, Oriented, Cooperative, No Acute Distress Neck: Reports: Supple Lungs: Reports: Normal Respiratory Effort GI/Abdominal Exam: No Distention Psy/Mental Status: Reports: Alert, Normal Affect *Q Meaningful Use (DIS) - VTE *Q VTE Criteria *Q: VTE Pharmacological Contraindications *Q: High INR Value - Stroke *Q Stroke Criteria *Q: - AMI *Q AMI Criteria *Q:
== END 2017-05-14 16:39 | DRG 812 ==
LOC: JP.ED 10:22 → UNDOADMIN 14:02 → JP.MS 14:02 → OBSVTOIN 05-11 11:00 → UNDODISIN 05-14 16:39
PROVIDERS: ADMIT Hospitalist; ATTEND Internal Medicine
PROC: 30233N1 Transfusion of Nonautologous Red Blood Cells into Peripheral Vein, Percutaneous Approach (ICD-10-PCS; principal; 2017-05-11)
PROC: 30233N1 Transfusion of Nonautologous Red Blood Cells into Peripheral Vein, Percutaneous Approach (ICD-10-PCS; 2017-05-12)
DX: D50.9 Iron deficiency anemia, unspecified (principal); N39.0 Urinary tract infection, site not specified; D64.89 Other specified anemias; I12.9 Hypertensive chronic kidney disease with stage 1 through stage 4 chronic kidney disease, or unspecified chronic kidney disease; N18.3 Chronic kidney disease, stage 3 (moderate); R21 Rash and other nonspecific skin eruption; Z86.718 Personal history of other venous thrombosis and embolism; R53.1 Weakness; R32 Unspecified urinary incontinence; I87.8 Other specified disorders of veins; M19.90 Unspecified osteoarthritis, unspecified site; Z79.82 Long term (current) use of aspirin; Z79.01 Long term (current) use of anticoagulants
CPT/HCPCS: 36415 ×2; 51702; 71010 ×2; 80048; 80053; 81001; 82728; 83550; 85025 ×2; 85610 ×2; 86850; 86870; 86900 ×2; 86901; 86920 ×2; 86922 ×2; 86970; 87086; 99285; A9270 ×7; J0696; J2916 ×2; J7030 ×2; J7040 ×2; J7050; 36430; 85018; 97110-GP; 97161-GP; 99284; P9016